=== PATIENT | male | born 1985 | race Caucasian/White ===

== ENCOUNTER 2018-11-25 14:41 | Emergency (ER) | payer SELFPAY ==
[~2018-11-25] VITALS: Ht 175.3 cm; Wt 89.3 kg
[2018-11-25 14:43] VITALS: BP 141/87; PULSE 91; RESP 18; Ht 175.3 cm; Wt 89.3 kg
[2018-11-25] MEDS ORDERED: THO50 PO (15:04)
[2018-11-25] MEDS ORDERED: BEN25 PO (15:05)
--- NOTE | 2018-11-25 15:06 | ERD ---
ER Documentation Chief Complaint Chief Complaint PT here for anti-psychotic medication refill-thorazine HPI 33-year-old male presents to ED for medication refill. He states that he just got out of [facility] and was taking Thorazine 200 mg for his psychiatric conditions. However when he left [facility] they never gave him a prescription and he has not been able to take his medication for about 1 week. He states that he does well on that current dose regimen. He denies any adverse side effects or reactions to the medication. He states that he has a appointment with a psychiatrist this coming up Tuesday with Dr. Bey with [employer]. He denies any other symptoms and is just asked for refill until he sees the psychiatrist. ROS All systems reviewed and are negative except as per history of present illness. Medications Home Meds Active Scripts Diphenhydramine Hcl* (Benadryl*) 25 Mg Cap, 25 MG PO Q6, #30 CAP Prov:JORI CALLAHAN PA-C 11/25/18 Chlorpromazine Hcl* (Thorazine*) 50 Mg Tab, 50 MG PO QID, #30 TAB Prov:JORI CALLAHAN PA-C 11/25/18 Allergies Allergies: Coded Allergies: No Known Allergy (Unverified , 11/25/18) FmHx Family History: No diabetes Physical Exam Vitals Vital Signs Date Temp Pulse Resp B/P (MAP) Pulse Ox O2 O2 Flow FiO2 Time Delivery Rate 11/25/18 98.2 91 18 141/87 98 14:43 (105) Physical Exam Const: No acute distress Head: Atraumatic Eyes: Normal Conjunctiva ENT: Normal External Ears, Nose and Mouth. Neck: Full range of motion. Resp: Clear to auscultation bilaterally Cardio: Regular rate and rhythm Neur: Awake and alert Psych: Normal Mood and Affect Procedures/MDM ED COURSE: The patient was stable throughout ED course. I kept the patient informed of laboratory and diagnostic imaging results throughout the ED course. MEDICATIONS GIVEN: [None.] MEDICAL DECISION MAKING: Patient is a 33-year-old male presenting for medication refill of Thorazine 200 mg. He states that he has been taken this medication on a regular basis without any adverse side effects reactions. He ran out because he was just released from [facility]. He is asking for refill until he sees his psychiatrist this coming up Tuesday with Dr. Bey [facility] [employer]. I have low suspicion for drug- seeking, he denies any suicidal thoughts or homicidal thoughts. Vital signs were reviewed. Patient is afebrile. Patient was not hypoxic. Patient was hemodynamically stable. Patient was told to follow up with primary care for further care and management. PRESCRIPTION: Thorazine 200 mg, Benadryl DISCHARGE: At this time, patient is stable for discharge and outpatient management. I have instructed the patient to follow-up with his/her primary care physician in 1-2 days. I have discussed with the patient the possibility of needing to see a specialist for further workup and imaging studies if symptoms persist. I have instructed the patient to promptly return to the ER for any new or worsening symptoms including increased pain, fever, nausea, vomiting, weakness or LOC. The patient expressed understanding of and agreement with this plan. All questions were answered. Home care instructions were provided. Disclaimer: Inadvertent spelling and grammatical errors are likely due to EHR/dictation software use and do not reflect on the overall quality of patient care. Also, please note that the electronic time recorded on this note does not necessarily reflect the actual time of the patient encounter. Departure Diagnosis: Primary Impression: Encounter for medication refill Condition: Fair Patient Instructions: Taking Medicine Safely Additional Instructions: Go to your Psych appointment with Dr. Ozuna on Tuesday Call your primary care doctor TOMORROW for an appointment during the next 1-2 days.See the doctor sooner or return here if your condition worsens before your appointment time. JORI CALLAHAN PA-C Nov 25, 2018 15:06
== END 2018-11-25 15:27 | disposition home or self-care (01) ==
LOC: FTE 14:41
DX: Z76.0 Encounter for issue of repeat prescription (principal)
CPT/HCPCS: 99281